=== PATIENT | female | born 1995 | race Caucasian/White ===

== ENCOUNTER 2019-01-22 18:27 | Emergency (ER) | payer OTHER ==
[2019-01-22 18:56] VITALS: BP 110/60
--- NOTE | 2019-01-22 19:05 | UC ---
HPI Wound/Suture Re-check - HPI Summary HPI Summary: Pt presents with request to have sutures removed. Sutures were placed in [place] on 01/16/19. - History Of Current Complaint Chief Complaint: UCLaceration Stated Complaint: SUTURE REMOVAL FROM [facility]IN Time Seen by Provider: 01/22/19 18:58 Hx Obtained From: Patient Hx Last Menstrual Period: 01/21/19 Onset/Duration: Sudden Onset, Resolved Severity: Mild Pain Intensity: 0 - Allergies/Home Medications Allergies/Adverse Reactions: Allergies Allergy/AdvReac Type Severity Reaction Status Date / Time No Known Allergies Allergy Verified 01/22/19 18:52 Home Medications: Home Medications Cephalexin CAP* [Keflex CAP*] 500 mg PO BID 01/22/19 [History Confirmed 01/22/19 ] PMH/Surg Hx/FS Hx/Imm Hx Previously Healthy: Yes - Surgical History Surgical History: None - Family History Known Family History: Positive: Cardiac Disease - Social History Occupation: Student Lives: With Family Alcohol Use: Occasionally Substance Use Type: None Smoking Status (MU): Never Smoked Tobacco Have You Smoked in the Last Year: No - Immunization History Vaccination Up to Date: Yes Review of Systems All Other Systems Reviewed And Are Negative: Yes Constitutional: Positive: Negative Skin: Positive: Other - sutures in chin Eyes: Positive: Negative ENT: Positive: Negative Respiratory: Positive: Negative Cardiovascular: Positive: Negative Gastrointestinal: Positive: Negative Genitourinary: Positive: Negative Motor: Positive: Negative Neurovascular: Positive: Negative Musculoskeletal: Positive: Negative Neurological: Positive: Negative Psychological: Positive: Negative Is Patient Immunocompromised?: No Physical Exam Triage Information Reviewed: Yes Appearance: Well-Appearing Vital Signs: Initial Vital Signs Temp 97.9 F 01/22/19 18:53 Pulse 65 01/22/19 18:53 Resp 15 01/22/19 18:53 BP 110/60 01/22/19 18:53 Pulse Ox 100 01/22/19 18:53 Vital Signs Reviewed: Yes Eye Exam: Normal ENT Exam: Normal Dental Exam: Normal Neck exam: Normal Respiratory: Positive: No respiratory distress Musculoskeletal Exam: Normal Neurological Exam: Normal Psychological Exam: Normal Skin Exam: Other - sutures intact, no s/sx of infection Course/Dx - Course Course Of Treatment: 9 sutures removed from chin. Pt tolerated well. - Differential Dx - Laceration/Wound Differential Diagnoses: Suture Removal - Diagnosis Provider Diagnosis: Visit for suture removal Discharge - Sign-Out/Discharge Documenting (check all that apply): Patient Departure All imaging exams completed and their final reports reviewed: No Studies - Discharge Plan Condition: Stable Disposition: HOME Patient Education Materials: Stitches Removal (ED) Referrals: [facility] [Outside] No Primary Care Phys,NOPCP [Primary Care Provider] - - Billing Disposition and Condition Condition: STABLE Disposition: Home - Attestation Statements Provider Attestation: I was available for consult. This patient was seen by the DUNG. The patient was not presented to , seen by or examined by me Trent Carl MD
== END 2019-01-22 19:14 | disposition home or self-care (01) ==
LOC: UCCORT 18:27
DX: S01.81XD Laceration without foreign body of other part of head, subsequent encounter (principal); X58.XXXD Exposure to other specified factors, subsequent encounter
CPT/HCPCS: 99201; G0463